=== PATIENT | male | born 1965 | race Caucasian/White ===

== ENCOUNTER 2017-11-14 17:46 | Inpatient (IN) | payer MEDICAID ==
[2017-11-14] MEDS ORDERED: Aspirin 81mg Chewable Tab PO STA (18:14)
--- NOTE | 2017-11-14 18:32 | ED Physician Chart ---
ED Chief Complaint/HPI - Patient Information Date Seen:: 11/14/17 Time Seen:: 18:00 Chief Complaint:: Chest Pain History of Present Illness:: onset x one day of exertional pressure localized chest pain; pt denies trauma, H /As, S/T, neck pain, cough, SOB, Abd. Pain, A/N/V/D/C, fever, chills, or urinary s/s Allergies:: Allergies Allergy/AdvReac Type Severity Reaction Status Date / Time chlorpromazine Allergy Verified 11/14/17 17:59 [From Thorazine] temazepam [From Restoril] Allergy Verified 11/14/17 18:00 ziprasidone [From Geodon] Allergy Verified 11/14/17 17:59 Vitals:: Vital Signs - 8 hr 11/14/17 18:02 Temp 98.9 F HR 79 RR 18 BP 174/92 O2 Sat % 96 Historian:: Patient, Family Member Review:: Nurse's Note Reviewed <Dc Jenkins - Last Filed: 11/14/17 19:03> - Patient Information Allergies:: Allergies Allergy/AdvReac Type Severity Reaction Status Date / Time chlorpromazine Allergy Verified 11/14/17 17:59 [From Thorazine] temazepam [From Restoril] Allergy Verified 11/14/17 18:00 ziprasidone [From Geodon] Allergy Verified 11/14/17 17:59 Vitals:: Vital Signs - 8 hr 11/14/17 11/14/17 18:02 18:55 Temp 98.9 F HR 79 82 RR 18 16 BP 174/92 137/88 O2 Sat % 96 96 <Scooter Suh - Last Filed: 11/14/17 21:56> ED Review of Systems - Review of Systems General/Constitutional: No fever, No chills, No weight loss, No weakness, No diaphoresis, No edema, No loss of appetite Skin: No skin lesions, No rash, No bruising Head: No headache, No light-headedness Eyes: No loss of vision, No pain, No diplopia ENT: No earache, No nasal drainage, No sore throat, No tinnitus Neck: No neck pain, No swelling, No thyromegaly, No stiffness, No mass noted Cardio Vascular: Chest pain, No palpitations, No PND, No orthopnea, No edema Pulmonary: No SOB, No cough, No sputum, No wheezing GI: Nausea, Vomiting, Diarrhea, No pain, No melena, No hematochezia, No constipation, No hematemesis G/U: No dysuria, No frequency, No hematuria, No nacturia Musculoskeletal: No bone or joint pain, No back pain, No muscle pain Endocrine: No polyuria, No polydipsia Psychiatric: No prior psych history, No depression, No anxiety, No suicidal ideation, No homicidal ideation, No auditory hallucination, No visual hallucination Hematopoietic: No bruising, No lymphadenopathy Allergic/Immuno: No urticaria, No angioedema Neurological: No syncope, No focal symptoms, No weakness, No paresthesia, No headache, No seizure, No dizziness, No confusion, No vertigo <GregoryDc - Last Filed: 11/14/17 19:03> ED Past Medical History - Past Medical History Obtainable: Yes Past Medical History: HTN, CAD, PUD/GERD Family History: HTN Social History: Non Smoker, No Alcohol, No Drug Use, Surgical History: CABG Psychiatricy History: None Medication: Reviewed <ApoorvajoycepedroDc - Last Filed: 11/14/17 19:03> Family Medical History - Family Member Mother History Unknown: Yes <GregoryDc Last Filed: 11/14/17 19:03> ED Physical Exam - Physical Examination General/Constitutional: Awake, Well-developed, well-nourished, Alert, No distress, GCS 15, Non-toxic appearing, Ambulatory Head: Atraumatic Eyes: Lids, conjuctiva normal, PERRL, EOMI Skin: Nl inspection, No rash, No skin lesions, No ecchymosis, Well hydrated, No lymphadenopathy ENMT: External ears, nose nl, TM canals nl, Nasal exam nl, Lips, teeth, gums nl , Oropharynx nl, Tonsils nl Neck: Nontender, Full ROM w/o pain, No JVD, No nuchal rigidity, No bruit, No mass, No stridor Respiratory: Nl effort/Exclusion, Clear to Auscultation, No Wheeze/Rhonchi/Rales Cardio Vascular: RRR, No murmur, gallop, rubs, NL S1 S2, Carotid/Femoral/Distal pulses equal bilaterally GI: No tenderness/rebounding/guarding, No organomegaly, No hernia, Normal BS's, Nondistended, No mass/bruits, No McBurney tenderness : No CVA tenderness Extremities: No tenderness or effusion, Full ROM, normal strength in all extremities, No edema, Normal digits & nails Neuro/Psych: Alert/oriented, DTR's symmetric, Normal sensory exam, Normal motor strength, Judgement/insight normal, Mood normal, Normal gait, No focal deficits Misc: Normal back, No paraspinal tenderness <Dc Jenkins - Last Filed: 11/14/17 19:03> ED Labs/Radiology/EKG Results - Lab Results Results: Laboratory Tests 11/14/17 11/14/17 11/14/17 18:25 18:25 18:25 WBC 7.5 RBC 4.80 Hgb 14.1 Hct 42.0 MCV 87.5 MCH 29.4 MCHC Differential 33.6 RDW 13.6 Plt Count 283 MPV 7.2 Neutrophils % 53.4 Lymphocytes % 38.8 Monocytes % 4.9 Eosinophils % 2.2 Basophils % 0.7 PT 10.4 INR 1.00 Sodium 140 Potassium 3.0 L Chloride 109 H Carbon Dioxide 21.8 Anion Gap 12.2 BUN 19 Creatinine 1.0 Est GFR ( Amer) > 60.0 Est GFR (Non-Af Amer) > 60.0 BUN/Creatinine Ratio 19.0 Glucose 117 H Calcium 9.2 Total Bilirubin 0.6 AST 22 ALT 21 Alkaline Phosphatase 52 Creatine Kinase Troponin I B-Natriuretic Peptide Total Protein 6.9 Albumin 4.3 Globulin 2.6 Albumin/Globulin Ratio 1.7 Triglycerides 148 Cholesterol 175 LDL Cholesterol Direct 137 HDL Cholesterol 28 11/14/17 11/14/17 11/14/17 18:25 18:25 18:25 WBC RBC Hgb Hct MCV MCH MCHC Differential RDW Plt Count MPV Neutrophils % Lymphocytes % Monocytes % Eosinophils % Basophils % PT INR Sodium Potassium Chloride Carbon Dioxide Anion Gap BUN Creatinine Est GFR ( Amer) Est GFR (Non-Af Amer) BUN/Creatinine Ratio Glucose Calcium Total Bilirubin AST ALT Alkaline Phosphatase Creatine Kinase 157 Troponin I < 0.01 L B-Natriuretic Peptide < 5.0 L Total Protein Albumin Globulin Albumin/Globulin Ratio Triglycerides Cholesterol LDL Cholesterol Direct HDL Cholesterol - Radiology Results Results: Chest x-ray negative - EKG Interpretations Rate & Rhythm: normal sinus rhythm with a rate of 82 [place]: normal Comments:: Left ventricular hypertrophy by voltage criteria <Scooter Suh - Last Filed: 11/14/17 21:56> ED Assessment - Assessment General Assessment: Patient presents with left sided chest pain and pain left axilla starting this morning. Pain is intermittent, squeezing and pressure-like and is nonpleuritic. Patient's had 4 or 5 episodes of chest pain each lasting about 2 minutes. Pain is 5 on a severity scale of 1-10. Patient took 81 mg of aspirin this morning as he does every day. Past medical history: Patient had 2 vessel coronary artery bypass graft surgery 3 years ago; patient has had 2 discectomies , tonsillectomy and appendectomy. Habits: Patient does not drink alcohol but he smokes one half pack of cigarettes a day. Family history: Coronary artery disease and hypertension. Physical exam patient well-developed well-nourished no acute distress. Eyes ears nose and throat: Normal except the patient is edentulous. Neck no jugulovenous distention. Chest: 1.5 out of 4 inspiratory/ expiratory wheezing and 3 out of 4 prolonged expiration phase. Abdomen benign. Extremities no edema. After the breathing treatment patient felt only minimally better. He did not have any respiratory distress either before or after the breathing treatment. Auscultation of the chest after the breathing treatment revealed prolonged expiratory phase, slight wheezing and 2/4 left basilar rales. At 2145 patient states he is not allergic to Restoril and he is taken Ativan in the past without any problem. <Scooter Suh - Last Filed: 11/14/17 21:56> ED Septic Shock - . Is Septic Shock (SBP<90, OR Lactate>4 mmol\L) present?: No - <6hrs of presentation: Vital Signs: Vital Signs - 8 hr 11/14/17 18:02 Temp 98.9 F HR 79 RR 18 BP 174/92 O2 Sat % 96 <Dc Jenkins - Last Filed: 11/14/17 19:03> - <6hrs of presentation: Vital Signs: Vital Signs - 8 hr 11/14/17 11/14/17 18:02 18:55 Temp 98.9 F HR 79 82 RR 18 16 BP 174/92 137/88 O2 Sat % 96 96 <Scooter Suh - Last Filed: 11/14/17 21:56> ED Reassessment (Disposition) - Reassessment Reassessment:: I believe the patient's chest pain is from exacerbation of COPD not from coronary artery disease. However the patient should be admitted since he has a history of coronary artery disease with two-vessel coronary artery bypass graft surgery and he continues to smoke cigarettes. Since troponin is negative and EKG shows only left ventricular hypertrophy patient could be admitted to telemetry. - Diagnosis Diagnosis:: Chest pain; exacerbation COPD; hyponatremia - Patient Disposition Admitted to:: Med/Surg Spoke to:: Mariah Son Admitting Medical Physician:: Mariah Son Condition at Disposition:: Stable, Improved <Scooter Suh - Last Filed: 11/14/17 21:56>
[2017-11-14 18:34] LABS: % BASOPHILS 0.7 % (0.0-2.0); % EOSINOPHILS 2.2 % (0.0-5.0); % LYMPHOCYTES 38.8 % (20.0-50.0); % MONOCYTES 4.9 % (2.0-10.0); % NEUTROPHILS 53.4 % (40.0-80.0); BASOPHILE ABSOLUTE 0.1 Th/cumm (0-0.2); EOSINOPHILE ABSOLUTE 0.2 Th/cmm (0.1-0.4); HEMOGLOBIN 14.1 gm/dL (12-16); LYMPHOCYTE ABSOLUTE 2.9 Th/cmm (1.5-3.0); MEAN CELL VOLUME 87.5 fl (80-99); MEAN CORPUSCULAR HEMOGLOBIN 29.4 pg (26.0-30.0); MEAN CORPUSCULAR HGB CONC 33.6 pg (28.0-36.0); MEAN PLATELET VOLUME 7.2 fl; MONOCYTE ABSOLUTE 0.4 Th/cmm (0.3-1.0); NEUTROPHILE ABSOLUTE 3.9 Th/cmm (1.8-8.0); PLATELET COUNT 283 Th/cmm (150-400); RED CELL DISTRIBUTION WIDTH 13.6 % (11.5-20.0); WHITE BLOOD COUNT 7.5 Th/cmm (4.8-10.8)
[2017-11-14] MEDS ORDERED: Aspirin 81mg Chewable Tab ONE (18:36)
[2017-11-14] MEDS ORDERED: Morphine Sulfate 2 mg/mL 1mL Syr IV STA (18:46)
[2017-11-14] MEDS ORDERED: Morphine Sulfate 4 mg/mL 1mL Syr IV STA (18:46)
[2017-11-14 18:47] LABS: PROTHROMBIN TIME (TEST) 10.4 SECONDS (9.5-11.5)
[2017-11-14 18:50] LABS: ALB/GLOB RATIO 1.7 (1.0-1.8); ALBUMIN 4.3 gm/dL (4.2-5.5); ALKALINE PHOSPHATASE 52 U/L (34-104); ANION GAP 12.2 (7.0-16.0); BILIRUBIN,TOTAL 0.6 mg/dL (0.3-1.0); BUN - UREA NITROGEN 19 mg/dL (7-25); CALCIUM SERUM 9.2 mg/dL (8.6-10.3); CARBON DIOXIDE 21.8 mEq/L (21.0-31.0); CHLORIDE 109 mEq/L (98-107); CHOLESTEROL 175 mg/dL (<200); GFR AFRICAN-AMERICAN > 60.0 ml/min (>90); GFR NON AFRICAN-AMERICAN > 60.0 ml/min; GLUCOSE 117 mg/dL (70-105); HDL -HIGH DENSITY LIPOPROTEIN 28 mg/dL (23-92); SGOT 22 U/L (13-39); SGPT/ALT 21 U/L (7-52); SODIUM SERUM 140 mEq/L (136-145); TOTAL PROTEIN,SERUM 6.9 gm/dL (6.0-8.3); TRIGLYCERIDES 148 mg/dL (<150)
[2017-11-14 18:51] LABS: CREATININE KINASE 157 U/L (30-223)
[2017-11-14] MEDS ORDERED: Morphine Sulfate 4 mg/mL 1mL Syr ONE (19:05)
[2017-11-14 19:16] LABS: DDIMER QUANT < 100 ng/mL (100-400)
[2017-11-14] MEDS ORDERED: Albuterol/Ipratropium Neb 3 ML AERS HHN ONE ×2 (19:22→19:29)
[2017-11-14] MEDS ORDERED: Potassium Chloride 20 mEq ER Tab PO ONE ×2 (20:45→20:46)
[2017-11-15] MEDS ORDERED: Albuterol/Ipratropium Neb 3 ML AERS HHN PRN (00:09)
[2017-11-15 01:47] VITALS: BP 129/77
[2017-11-15 06:34] LABS: ALB/GLOB RATIO 1.7 (1.0-1.8); ALBUMIN 3.9 gm/dL (4.2-5.5); ALKALINE PHOSPHATASE 47 U/L (34-104); ANION GAP 9.9 (7.0-16.0); BILIRUBIN,TOTAL 0.5 mg/dL (0.3-1.0); BUN - UREA NITROGEN 17 mg/dL (7-25); CARBON DIOXIDE 22.8 mEq/L (21.0-31.0); CHLORIDE 111 mEq/L (98-107); CREATININE - SERUM 0.8 mg/dL (0.7-1.3); GFR AFRICAN-AMERICAN > 60.0 ml/min (>90); GFR NON AFRICAN-AMERICAN > 60.0 ml/min; GLUCOSE 96 mg/dL (70-105); POTASSIUM SERUM 3.7 mEq/L (3.5-5.1); SGOT 20 U/L (13-39); SGPT/ALT 20 U/L (7-52); SODIUM SERUM 140 mEq/L (136-145); TOTAL PROTEIN,SERUM 6.2 gm/dL (6.0-8.3)
--- NOTE | 2017-11-15 07:41 | Diagnostic Imaging Report ---
CHEST X-RAY: AP view INDICATION: pain COMPARISON: None FINDINGS: There is evidence of prior median sternotomy.. There is no focal consolidation or pleural effusions The heart is normal in size. The osseous structures demonstrate no acute abnormalities. IMPRESSION: No focal airspace consolidation identified Status post median sternotomy.
[2017-11-15] MEDS ORDERED: Aspirin 81mg Chewable Tab PO SCH ×2 (09:00)
[2017-11-15] MEDS ORDERED: Enoxaparin 40 mg/0.4 mL 0.4mL Syr SUBQ SCH (09:00)
[2017-11-15] MEDS ORDERED: Pantoprazole 40 mg EC Tab PO SCH (09:00)
== END 2017-11-15 11:10 | disposition left against medical advice (07) | DRG 140 ==
LOC: ER 17:46 → MSI 23:00
PROVIDERS: ADMIT Family Medicine; ATTEND Family Medicine
DX: J44.1 Chronic obstructive pulmonary disease with (acute) exacerbation (principal); E87.1 Hypo-osmolality and hyponatremia; I11.9 Hypertensive heart disease without heart failure; R07.89 Other chest pain; I25.10 Atherosclerotic heart disease of native coronary artery without angina pectoris; F17.210 Nicotine dependence, cigarettes, uncomplicated; Z53.21 Procedure and treatment not carried out due to patient leaving prior to being seen by health care provider; K21.9 Gastro-esophageal reflux disease without esophagitis; Z95.1 Presence of aortocoronary bypass graft; Z82.49 Family history of ischemic heart disease and other diseases of the circulatory system; Z88.8 Allergy status to other drugs, medicaments and biological substances; Z87.11 Personal history of peptic ulcer disease; Z90.49 Acquired absence of other specified parts of digestive tract; Z90.89 Acquired absence of other organs
CPT/HCPCS: 36415-UA; 71045-TC; 80053-TC; 80061-TC; 82550-TC; 83735-TC; 83880-TC; 84484-TC; 85025-TC; 85379-TC; 85610-TC; 93005; 94640; 94760; 96374; J1650; J1885; Z7610